=== PATIENT | female | born 1975 | race Caucasian/White ===

== ENCOUNTER 2017-09-07 08:38 | Emergency (ER) | payer MEDICAID ==
[~2017-09-07] VITALS: Ht 162.6 cm; Wt 68.2 kg
[2017-09-07 08:42] VITALS: Ht 162.6 cm; Wt 68.2 kg
[2017-09-07] MEDS ORDERED: CYMBALTA60 MG PO ×2 (08:43→10:11)
[2017-09-07] MEDS ORDERED: NORVASC5 MG PO (08:43)
[2017-09-07] MEDS ORDERED: BENICAR40 MG PO (08:43)
[2017-09-07] MEDS ORDERED: NEURONTIN 300300 MG PO (08:44)
[2017-09-07] MEDS ORDERED: OXYCONTIN10 MG PO (08:44)
[2017-09-07] MEDS ORDERED: VALIUM10 MG PO (08:44)
[2017-09-07 09:18] LABS: BASOPHILS 0.2 % (0-2); EOSINOPHILS 1.3 % (0-7); HEMATOCRIT 38.6 % (36.0-48.0); IMMATURE GRANULOCYTES 0.7 % (0-5); LYMPHOCYTES 21.7 % (15-50); MCH 32.3 pg (26.0-34.0); MCHC 33.7 g/dL (31.0-37.0); MCV 95.8 fL (80.0-100.0); MONOCYTES 6.5 % (2-11); NEUTROPHILS 69.6 % (40-80); PLATELET COUNT 362 10x3/uL (130-400); RBC 4.03 10x6/uL (4.00-5.40); RDW 12.6 % (11.5-14.5); WBC 13.8 10x3/uL (4.8-10.8)
[2017-09-07 09:28] LABS: UDS - AMPHET NEGATIVE QUAL (NEGATIVE); UDS - BARB NEGATIVE QUAL (NEGATIVE); UDS - BENZO POSITIVE QUAL (NEGATIVE); UDS - COCAINE NEGATIVE QUAL (NEGATIVE); UDS - OPIATE NEGATIVE QUAL (NEGATIVE); UDS - PCP NEGATIVE QUAL (NEGATIVE); UDS - THC POSITIVE QUAL (NEGATIVE)
[2017-09-07 09:34] LABS: ALBUMIN 4.1 g/dL (3.4-5.0); ANION GAP 12.6 mmol/L (8-16); BILIRUBIN - TOTAL 0.14 mg/dL (0.2-1.3); CALCIUM 9.2 mg/dL (8.5-10.1); CARBON DIOXIDE 24.5 mmol/L (21.0-32.0); MAGNESIUM - SERUM 1.8 mg/dL (1.8-2.4); POTASSIUM - SERUM 4.1 mmol/L (3.5-5.1); PROTEIN - SERUM 7.8 g/dL (6.4-8.2)
[2017-09-07] MEDS ORDERED: ZOFRAN4 MG PO (10:11)
[2017-09-07 10:24] VITALS: BP 123/82
== END 2017-09-07 10:30 | disposition home or self-care (01) ==
LOC: D.ER 08:38
PROVIDERS: Family Medicine
DX: F11.23 Opioid dependence with withdrawal (principal); F32.9 Major depressive disorder, single episode, unspecified; F15.10 Other stimulant abuse, uncomplicated; I10 Essential (primary) hypertension; F17.200 Nicotine dependence, unspecified, uncomplicated